=== PATIENT | male | born 1940 | race Caucasian/White ===

== ENCOUNTER 2017-05-30 20:35 | Emergency (ER) | payer BC ==
--- NOTE | 2017-05-30 21:29 | Emergency Department Record ---
History of Present Illness - General Chief complaint: Pain Stated complaint: LT KNEE INJURY Time Seen by Provider: 05/30/17 21:23 Source: Patient Mode of Arrival: Ambulatory Limitations: No limitations - History of Present Illness Initial comments: 76 yo male presents with a concern about his left knee. He was in the yard and slipped on apples and his left leg bent backward. He has pain with any knee movement or weight bearing. No prior knee surgery. No other injuries. NO weakness, numbness or tingling. No orthopedist. MD Complaint: Extremity pain, Joint pain -: Hour(s) Location: Left, Knee History of Same: No -: Yes Arthralgia Radiation: None Quality: Aching Consistency: Constant Improves with: Nothing Worsens with: Palpation, Walking, Weight bearing Associated Symptoms: Denies other symptoms - Related Data Home Medications Medication Instructions Recorded Confirmed Last Taken Albuterol Sulfate [Ventolin Hfa] 1 - 2 puff IH .EVERY 4-6 HOURS PRN 01/09/16 1 Day Ago ~01/08/16 Atorvastatin Calcium 20 mg PO DAILY 01/09/16 05/30/17 1 Day Ago ~01/08/16 Fluticasone Propionate [Flonase 9.9 ml NS DAILY 01/09/16 05/30/17 1 Day Ago Allergy Relief] ~01/08/16 Fluticasone Propionate [Flovent] 12 gm IH Q12H 01/09/16 05/30/17 1 Day Ago ~01/08/16 Levalbuterol Tartrate [Xopenex Hfa] 1 puff INH RESP.Q4H 01/09/16 05/30/17 1 Day Ago ~01/08/16 Metformin HCl 500 mg PO BID 01/09/16 05/30/17 1 Day Ago ~01/08/16 Ramipril [Altace] 5 mg PO DAILY 01/09/16 05/30/17 1 Day Ago ~01/08/16 Dutasteride [Dutasteride] 0.5 mg PO DAILY 05/30/17 05/30/17 Unknown Rivaroxaban [Xarelto] 20 mg PO DAILY 05/30/17 05/30/17 Unknown Tamsulosin HCl [Flomax] 0.4 mg PO DAILY 05/30/17 05/30/17 Unknown Previous Rx's Medication Instructions Recorded Hydrocodone/Acetaminophen [Stevenson 1 each PO Q6H PRN #25 tablet 05/30/17 5-325 Tablet] Allergies Allergy/AdvReac Type Severity Reaction Status Date / Time aspirin Allergy RASH Verified 01/09/16 11:48 Penicillins Allergy HIVES Verified 01/09/16 11:48 Review of Systems Constitutional: Denies: Chills, Fever, Malaise, Weakness Eyes: Denies: Eye discharge ENT: Denies: Congestion, Throat pain Respiratory: Denies: Cough Cardiovascular: Denies: Chest pain, Syncope Endocrine: Denies: Fatigue Gastrointestinal: Denies: Abdominal pain, Diarrhea, Nausea, Vomiting Genitourinary: Denies: Dysuria, Frequency, Hematuria Musculoskeletal: Reports: As per HPI, Arthralgia Skin: Denies: Bruising, Change in color Neurological: Denies: Confusion, Headache, Numbness, Tingling, Tremors, Weakness Psychiatric: Denies: Anxiety Hematological/Lymphatic: Denies: Easy bleeding, Easy bruising Past Medical History - SOCIAL HISTORY Smoking Status: Former smoker - RESPIRATORY Hx Asthma: Yes - CARDIOVASCULAR Hx Abnormal EKG: Yes Hx Irregular Heartbeat: Yes (a-fib) - NEURO Hx Neuro Disorders: No - GI Hx GI Disorders: No - Hx Genitourinary Disorders: No Hx Prostate Problems: Yes - ENDOCRINE Hx Diabetes: Yes Hx Thyroid Disease: No - MUSCULOSKELETAL Hx Arthritis: Yes - PSYCH Hx Psych Problems: No - HEMATOLOGY/ONCOLOGY Hx Hematology/Oncology Disorders: No Physical Exam - General General Appearance: Alert, Oriented x3, Cooperative, No acute distress Limitations: No limitations - Head Head exam: Atraumatic, Normal inspection - Eye Eye exam: Normal appearance - ENT ENT exam: Normal exam Ear exam: Normal external inspection Nasal Exam: Normal inspection Mouth exam: Normal external inspection Teeth exam: Normal inspection - Neck Neck exam: Normal inspection, Full ROM. negative: Tenderness - Respiratory Respiratory exam: Normal lung sounds bilaterally. negative: Respiratory distress - Cardiovascular Cardiovascular Exam: Regular rate, Normal rhythm, Normal heart sounds - GI/Abdominal GI/Abdominal exam: Soft. negative: Tenderness - Rectal Rectal exam: Deferred - exam: Deferred - Extremities Extremities exam: Joint swelling, Normal capillary refill, Tenderness. negative : Normal inspection (knee swelling), Full ROM, Pedal edema Image of Full Body: 1 - tender medially and over the patella, effesion noted, intact skin. - Back Back exam: Reports: Normal inspection, Full ROM. Denies: Muscle spasm, Rash noted, Tenderness - Neurological Neurological exam: Alert, Normal gait, Oriented X3 - Psychiatric Psychiatric exam: Normal affect, Normal mood - Skin Skin exam: Dry, Intact, Normal color, Warm Course - Reevaluation(s) Reevaluation #1: The XR was reviewed and discussed with the radiologist No fracture. Degenerative changes and loose bodies. He will be placed in a new immobilizer and crutches He will provided a referral to ortho with recommendation for outpatient MRI through his PCP 05/30/17 22:39 Disposition Disposition: Discharge Clinical Impression: Left knee sprain Qualifiers: Encounter type: initial encounter Involved ligament of knee: unspecified ligament Qualified Code(s): S83.92XA - Sprain of unspecified site of left knee, initial encounter Disposition: Home, Self-Care Condition: (1) Good Instructions: Knee Sprain (ED) Additional Instructions: No weight bearing Call for the follow up with your family doctor You will need an MRI to assess for ligament or tendon tears You are referred to Dr Dalal of orthopedics at Prescriptions: Hydrocodone/Acetaminophen [Stevenson 5-325 Tablet] 1 each PO Q6H PRN #25 tablet PRN Reason: Pain - General Referrals: ANN-MARIE DALAL [DOCTOR OF OSTEOPATH] - [facility] [Provider Group] Forms: Patient Portal Access Time of Disposition: 22:44 Quality - Quality Measures Quality Measures: N/A - Blood Pressure Screening Does Patient Have Any of the Following: No Blood Pressure Classification: Pre-Hypertensive BP Reading Systolic Measurement: 132 Diastolic Measurement: 73 Screening for High Blood Pressure: < Pre-Hypertensive BP, F/U Documented > [ [id number]] Pre-Hypertensive Follow-up Interventions: Referral to alternative/primary care provider.
[2017-05-30] MEDS ORDERED: MORPHINE SULFATE 5 MG/ML PFS IVP ONE (21:45)
[2017-05-30] MEDS ORDERED: HYDROCODONE/APAP 5/325MG TABLET PO ONE (22:46)
--- NOTE | 2017-05-31 09:11 | RADIOLOGY REPORT ---
EXAM: LEFT KNEE HISTORY: KNEE PAIN. TECHNIQUE: Four views of the left knee were obtained. Comparison: None. Encounter: Initial. FINDINGS: Negative for acute fracture or dislocation. Moderate to advanced tricompartmental degenerative change. Moderate sized suprapatellar joint effusion is suggested with probable loose body formation. Well defined bony protuberance extending from the medial tibial metadiaphysis measuring 9 x 15 mm is consistent with osteochondroma. The surrounding soft tissues are unremarkable. IMPRESSION: 1. TRICOMPARTMENTAL DEGENERATIVE CHANGES WITH MODERATE JOINT EFFUSION AND PROBABLE LOOSE BODY FORMATION. 2. OSTEOCHONDROMA. JOB [facility]BER: [id number] [facility]
== END 2017-05-30 23:12 | disposition home or self-care (01) ==
LOC: ER 20:35
DX: S83.92XA Sprain of unspecified site of left knee, initial encounter (principal); W01.0XXA Fall on same level from slipping, tripping and stumbling without subsequent striking against object, initial encounter; Y92.007 Garden or yard of unspecified non-institutional (private) residence as the place of occurrence of the external cause
CPT/HCPCS: 29505; 99284 ×2; 96374; 73564; J2270